=== PATIENT | female | born 1955 | race Caucasian/White ===

== ENCOUNTER 2018-01-06 16:56 | Observation (INO) | payer BC, OTHER, SELFPAY ==
[~2018-01-06] VITALS: Ht 167.6 cm; Wt 85.4 kg
[2018-01-06] MEDS ORDERED: METO25TA35 PO (17:29)
[2018-01-06] MEDS ORDERED: POTA10CA PO (17:29)
[2018-01-06] MEDS ORDERED: HYDR25TA6 PO (17:29)
[2018-01-06 17:32] LABS: BASOPHILS % (AUTO) 1 % (0-1); EOSINOPHILS # (AUTO) 0.11 x10^3/uL (0-0.4); EOSINOPHILS % (AUTO) 1 % (1-7); LYMPHOCYTES # (AUTO) 2.64 x10^3/uL (1-3.4); LYMPHOCYTES % (AUTO) 24 % (22-44); MD NO; MEAN CORPUSCULAR HEMOGLOBIN 31.6 pg (27.0-34.8); MONOCYTES # (AUTO) 1.04 x10^3/uL (0.2-0.8); MONOCYTES % (AUTO) 10 % (2-9); NEUTROPHILS # (AUTO) 7.05 x10^3/uL (1.8-6.8); NEUTROPHILS % (AUTO) 65 % (42-75); PLATELET COUNT 304 x10^3/uL (130-400); RED BLOOD COUNT 5.01 x10^6/uL (3.82-5.3); RED CELL DISTRIBUTION WIDTH 13.8 % (9.6-15.2)
[2018-01-06 17:36] LABS: ALANINE AMINOTRANSFERASE 23 U/L (12-78); ALBUMIN 3.8 g/dL (3.4-5.0); ANION GAP 8 mmol/L (5-15); CHLORIDE 104 mmol/L (98-107); CREATININE 0.74 mg/dL (0.55-1.02)
[2018-01-06 17:39] LABS: ALKALINE PHOSPHATASE 66 U/L (45-117); BILIRUBIN,TOTAL 0.8 mg/dL (0.2-1.0); TOTAL PROTEIN 7.2 g/dL (6.4-8.2)
[2018-01-06] MEDS ORDERED: LABETALOL 5MG/ML, 20ML IVPush STA (18:31)
[2018-01-06] MEDS ORDERED: ASPIRIN 325 MG TABLET PO ONE (18:31)
[2018-01-06] MEDS ORDERED: ASPIRIN 325 MG TABLET ONE (18:39)
[2018-01-06] MEDS ORDERED: LABETALOL 5MG/ML, 20ML ONE (18:39)
[2018-01-06] MEDS ORDERED: ACETAMINOPHEN 325 MG TABLET PO PRN (19:00)
[2018-01-06] MEDS ORDERED: TEMAZEPAM 15 MG CAPSULE PO PRN (19:00)
[2018-01-06] MEDS ORDERED: LABETALOL 5MG/ML, 20ML IV PRN (19:00)
[2018-01-06 20:30] VITALS: BP 167/89
[2018-01-06] MEDS: ATORVASTATIN 40 MG TABLET PO SCH (21:00)
[2018-01-06] MEDS ORDERED: LORazepam 2 MG/ML, 1ML IVPush ONE (21:30)
[2018-01-07 01:13] VITALS: BP 167/89
[2018-01-07 02:59] VITALS: BP 173/92
[2018-01-07 06:18] LABS: CHOL/HDL RATIO 2.5; LDL/HDL RATIO 1.3 (0.5-3.0)
[2018-01-07 06:35] VITALS: BP 160/84
[2018-01-07] MEDS: ASPIRIN 81 MG TABLET CHEW PO/NG SCH (10:05)
[2018-01-07] MEDS ORDERED: LORazepam 2 MG/ML, 1ML ONE (11:54)
[2018-01-07] MEDS ORDERED: LORazepam 2 MG/ML, 1ML IVPush ONE (12:00)
[2018-01-07 13:14] VITALS: BP 172/79
[2018-01-07] MEDS ORDERED: LABETALOL 5MG/ML, 20ML IVPush PRN (17:00)
[2018-01-07] MEDS ORDERED: ENALAPRILAT 1.25 MG/ML, 2ML IV PRN (17:00)
[2018-01-07 20:14] VITALS: BP 153/82
[2018-01-07] MEDS: ATORVASTATIN 40 MG TABLET PO SCH (20:16)
[2018-01-08 03:40] VITALS: BP 157/96
[2018-01-08 07:35] VITALS: BP 184/94
[2018-01-08] MEDS ORDERED: METOPROLOL TARTRATE 100 MG TABLET PO SCH (09:00)
[2018-01-08] MEDS ORDERED: HYDROCHLOROTHIAZIDE 25 MG TABLET PO SCH (09:00)
[2018-01-08] MEDS: ASPIRIN 81 MG TABLET CHEW PO/NG SCH (10:39)
[2018-01-08 10:54] VITALS: BP 179/106
[2018-01-08 11:30] VITALS: BP 138/92
[2018-01-08 12:57] VITALS: BP 150/89
[2018-01-08] MEDS ORDERED: LISINOPRIL 10 MG TABLET PO SCH (14:30)
[2018-01-08] MEDS ORDERED: LISI-167 PO (16:24)
[2018-01-08] MEDS ORDERED: ASPI-515 PO/NG (16:24)
[2018-01-08] MEDS ORDERED: ATOR40TA78 PO (16:24)
== END 2018-01-08 17:52 | disposition home or self-care (01) ==
LOC: ED 19:01 → INTOOBSV 19:10 → EDIP 19:10 → 4EST 20:11
PROVIDERS: ADMIT Family Medicine; ATTEND Family Medicine
DX: G45.9 Transient cerebral ischemic attack, unspecified (principal); G46.0 Middle cerebral artery syndrome; I10 Essential (primary) hypertension; I66.29 Occlusion and stenosis of unspecified posterior cerebral artery; Z79.82 Long term (current) use of aspirin; Z83.3 Family history of diabetes mellitus; Z87.891 Personal history of nicotine dependence
CPT/HCPCS: 0399T; 36415; 70450; 70544; 70551; 80053; 80061; 85025; 92523; 93005; 93306; 93880; 93971; 96374; 96375; 96376; 97162; 97165; 99285; G0378; G8978; G8979; G8980; J2060

== ENCOUNTER 2018-02-16 15:37 | Emergency (ER) | payer BC ==
[~2018-02-16] VITALS: Ht 167.6 cm; Wt 86.6 kg
[~2018-02-16 15:37] MED LIST: ASPI-515 PO/NG; ATOR40TA78 PO; HYDR25TA6 PO; LISI-167 PO; METO25TA35 PO; POTA10CA PO
[2018-02-16 15:46] VITALS: BP 172/86
== END 2018-02-16 17:30 | disposition home or self-care (01) ==
LOC: ED 17:11
DX: R05 Cough (principal); T46.4X5A Adverse effect of angiotensin-converting-enzyme inhibitors, initial encounter; Y92.89 Other specified places as the place of occurrence of the external cause; I10 Essential (primary) hypertension
CPT/HCPCS: 71046; 93005; 99284

== ENCOUNTER → 2019-06-30 | Outpatient (CLI) | payer OTHER | END | disposition home or self-care (01) | LOC: RAD 14:33 | PROVIDERS: ATTEND Orthopaedic Surgery | DX: J98.11 Atelectasis (principal); J44.9 Chronic obstructive pulmonary disease, unspecified | CPT/HCPCS: 71046 ==

== ENCOUNTER → 2020-09-06 | Outpatient (CLI) | payer BC ==
[~2020-09-06] MED LIST changes: -ASPI-515 PO/NG; +ASPI-963 PO/NG
== END | disposition home or self-care (01) ==
LOC: CFH 13:34
PROVIDERS: ATTEND Internal Medicine Cardiovascular Disease
DX: I08.2 Rheumatic disorders of both aortic and tricuspid valves (principal); I11.9 Hypertensive heart disease without heart failure; R07.9 Chest pain, unspecified
CPT/HCPCS: 93306